=== PATIENT | male | born 1990 | race Caucasian/White ===

== ENCOUNTER 2019-04-20 05:15 | Day surgery (SDC) | payer BC ==
[~2019-04-20] VITALS: Ht 185.4 cm; Wt 104.3 kg
[2019-04-20] MEDS ORDERED: ONDANSETRON HCL 4 MG/2 ML VIAL IVP PRN (08:30)
[2019-04-20] MEDS ORDERED: HYDROmorphone 1 MG INJ. 1 MG/ML AMPUL IVP PRN ×2 (08:30)
[2019-04-20] MEDS ORDERED: PROPOFOL 200MG/ 20ML VIAL (DIPRIVAN) IV ONE (09:56)
[2019-04-20] MEDS ORDERED: SUCCINYLCHOLINE CHLORIDE 20 MG/ML(QUELICIN) ONE (09:56)
[2019-04-20] MEDS ORDERED: fentaNYL CITRATE/PF 100 MCG/2 ML AMP IVP ONE (09:56)
[2019-04-20] MEDS ORDERED: DEXAMETHASONE SOD PHOSPHATE 4 MG/ML VIAL ONE (09:56)
[2019-04-20] MEDS ORDERED: NS 1000 ML IV.SOLN IV ONE (09:56)
[2019-04-20] MEDS ORDERED: DESFLURANE 15 MIN GAS INH ONE (09:56)
[2019-04-20] MEDS ORDERED: HYDROmorphone 2 MG/ML VIAL ONE (09:56)
[2019-04-20] MEDS ORDERED: ONDANSETRON HCL 4 MG/2 ML VIAL ONE (09:56)
[2019-04-20] MEDS ORDERED: ROCURONIUM BROMIDE 10 MG/ML (ZEMURON) ONE (09:56)
[2019-04-20] MEDS ORDERED: LR 1,000 ML IV.SOLN IV ONE (09:56)
[2019-04-20] MEDS ORDERED: EPINEPHrine 1 MG/ML AMP ONE (09:56)
[2019-04-20] MEDS ORDERED: WATER FOR IRRIGATION,STERILE 1,000 ML IRRIG.SOLN IR ONE (09:56)
[2019-04-20 11:09] VITALS: BP_SYST 130
== END 2019-04-20 13:45 | disposition home or self-care (01) ==
LOC: SMU 05:15 → SDS 05:15
PROVIDERS: ATTEND Otolaryngology
DX: J34.2 Deviated nasal septum (principal); J32.8 Other chronic sinusitis; J01.40 Acute pansinusitis, unspecified; J30.1 Allergic rhinitis due to pollen; E66.9 Obesity, unspecified; Z88.5 Allergy status to narcotic agent
CPT/HCPCS: 30140; 30520; 31255; 31295; 88305; 88311; C1726; J0171; J0330; J1100; J1170; J2405; J2704; J7030; J7120; J3010